=== PATIENT | male | born 1955 | race Caucasian/White ===

== ENCOUNTER 2017-01-19 08:18 | Day surgery (SDC) | payer OTHER ==
[2013-08-20 09:21] VITALS: BP 148/74
[~2017-01-19 08:18] MED LIST: KETAMINE HCL 200 MG/20 ML VIAL ONE; LACTATED RINGERS 1,000 ML IV.SOLN IV ONE; LIDOCAINE HCL/PF 2% 100 MG/5 ML VIAL IJ ONE; PROPOFOL 200 MG/20 ML VIAL IV ONE; SALINE FLUSH 10 ML DISP.SYRIN IVF ONE
--- NOTE | 2017-01-29 13:15 | GI Report ---
REFERRING PHYSICIAN: Dr. Monica Rutherford LEAD FURNACE OPERATOR: Johan Newman MD PROCEDURE MEDICATION: Propofol as per anesthesia. INDICATIONS: This 61-year-old man is referred for a screening. He is 6 feet 1 inch and weighs 388 pounds and carries that weight centrally. He does have significant sleep apnea. He denies changes in his stools or blood in the stool or a family history of colorectal cancer. PROCEDURE PERFORMED: Colonoscopy. PROCEDURE: An Olympus video colonoscope was advanced to the rectum. He does have moderate diverticular disease of the sigmoid and descending colon and a slightly atonic redundant colon, though we were able to reach the cecum. The appendiceal orifice and ileocecal valve looked normal. On slow withdrawal, the cecum and ascending colon showed no obvious intraluminal lesions noted until you got near the splenic flexure at 80 cm, the patient had a 3 mm flat polyp that was removed with a cold snare. The main part of the descending colon and sigmoid colon showed some redundancy and diverticular disease. Retroflexion of the rectum was normal. The patient tolerated the procedure well. FINDINGS: 1. One small polyp removed near the splenic flexure. 2. Moderate diverticular disease of the sigmoid and descending colon. RECOMMENDATIONS: 1. Increase fiber in the diet. 2. Metamucil or Benefiber would be beneficial. 3. With his sleep apnea and hip issues, weight loss would also be markedly beneficial. 4. Follow up with Dr. Rutherford. 5. Consider re-looking at his colon in 5 to 10 years pending the pathology of the polyp. cc: Dr. Monica GUTIERREZ
== END 2017-01-19 08:20 ==
LOC: OPSURG 08:18
PROVIDERS: ATTEND Internal Medicine Gastroenterology
DX: Z12.11 Encounter for screening for malignant neoplasm of colon (principal); D12.2 Benign neoplasm of ascending colon; K57.30 Diverticulosis of large intestine without perforation or abscess without bleeding; G47.33 Obstructive sleep apnea (adult) (pediatric)
CPT/HCPCS: 45385; 88305; J2001; J2704; J7120; S1016

== ENCOUNTER 2017-02-16 09:22 | Outpatient (CLI) | payer OTHER ==
[2013-08-20 09:21] VITALS: BP 148/74
[2017-02-16 10:06] LABS: eGFR (African) > 60; eGFR (Non-African) > 60
== END 2017-02-16 09:23 ==
LOC: LAB 09:22
PROVIDERS: ATTEND Family Medicine
DX: R60.0 Localized edema (principal)
CPT/HCPCS: 36415; 80048

== ENCOUNTER 2018-06-26 18:36 | Inpatient (IN) | payer OTHER ==
[2018-06-26 19:57] LABS: BASOPHILS % 0.3 (0.0-1.5); EOSINOPHILS % 0.3 % (0.0-6.8); MEAN CORPUSCULAR HEMOGLOBIN 30.8 pg (28.0-34.0); MEAN CORPUSCULAR VOLUME 88.8 fl (80.0-100.0); MONOCYTES % 4.4 % (0.0-11.0); NEUTROPHILS # 8.1 # k/uL (1.4-7.7)
--- NOTE | 2018-06-26 19:58 | ED Physician Documentation ---
General Adult - HPI Stated Complaint: "Increased urination, dizzy 3 days" Chief Complaint: General Adult Additional Information: 2 day history of swelling to the left lower extremity, associated with some erythema and warmth. Has had some SOB over the last several day. No chest pain noted. Has had a mild cough. Has been having some frequent urination, mouth has been dry. Patient has dx of DM in chart at office but states that he has not been told that he is diabetic or borderline diabetic. Patient has had cellulitis in the past. Has not had a previous blood clot. Patient came to the ED becasue he was getting dizzy and lightheaded some. Onset: days ago Timing: still present, worse Modifying Factors: none known - ROS CONST: fever. denies: chills EYES/ENT: denies: problems with vision CVS/RESP: shortness of breath (mild). denies: chest pain, cough GI/: none MS/SKIN/LYMPH: none NEURO/PSYCH: denies: headache, fainting, dizziness - PAST HX Past History: other (GERDs, LIZETTE, ) Other History: none Immunizations: referred to PCP Allergies/Adverse Reactions: Allergies Allergy/AdvReac Type Severity Reaction Status Date / Time Penicillins Allergy Verified 06/26/18 19:33 Home Medications: Ambulatory Orders Medication Instructions Recorded Aspirin [Osman] 162 mg PO QD 08/20/13 Naproxen Sodium [Aleve] 440 mg PO DAILY 08/20/13 - SOCIAL HX Smoking History: non-smoker Alcohol Use: rarely Drug Use: none - FAMILY HX Family History: Yes (DM, DVT) - VITAL SIGNS Vital Signs: Vital Signs Temp Pulse Resp BP Pulse Ox 98.6 F 100 H 20 164/88 95 06/26/18 18:40 06/26/18 18:40 06/26/18 18:40 06/26/18 18:40 06/26/18 18:40 - REVIEWED ASSESSMENTS Nursing Assessment Reviewed: Yes Vitals Reviewed: Yes Progress - Progress Progress: Patient was advised that his blood sugar is markedly elevated. I did not do a D dimer because patient will be place on anticoagulation therapy until venous doppler study can be done. Patient exceeds weight limit for CT scanner. ED Results Lab/Radiology - Orders Orders: ED Orders Category Date Time Status Place IV Lock 1T Care 06/26/18 18:53 Active CBC/PLATELET/DIFF Routine Lab 06/26/18 19:40 Received CMP Routine Lab 06/26/18 19:40 Received GLYCOHEMOGLOBIN A1C with eAG Routine Lab 06/26/18 19:40 Received URINALYSIS Routine Lab 06/26/18 Uncollected General Adult Physical Exam - PHYSICAL EXAM GENERAL APPEARANCE: mild distress EENT: eye inspection normal, ENT inspection normal, pharynx normal, dry mucous membranes NECK: normal inspection, thyroid normal, supple RESPIRATORY: no resp distress, chest non-tender, breath sounds normal. No: wheezes, rales, rhonchi CVS: reg rate & rhythm, heart sounds normal, equal pulses, no murmur, no gallop ABDOMEN: soft, no organomegaly, normal bowel sounds, no abdominal bruit, no distension, non-tender BACK: no CVA tenderness SKIN: other (swelling and erythema to the MARK, mild tender to touch, no cords palpated, Homans neg) EXTREMITIES: normal range of motion, no evidence of injury, edema, tenderness NEURO: oriented X3, CN's nml as tested, motor nml, sensation nml, mood/affect nml, cognition normal Discharge Clincal Impression: Cellulitis of left lower extremity, Hyperglycemia Condition: Stable Disposition: ADMITTED INPATIENT Decision to Admit: [id number] Date of Decison to Admit: 06/26/18 Decision Time: 20:34
[2018-06-26 20:10] LABS: eGFR (Non-African) > 60
[2018-06-26] MEDS ORDERED: PNEUMOCOCCAL 23-VAL IM ONE (21:26)
[2018-06-26] MEDS ORDERED: LEVOFLOXACIN 500MG/D5W 100ML 100 ML IV ONE (21:26)
[2018-06-26] MEDS ORDERED: LEVOFLOXACIN 250MG/D5W 50ML 50 ML IV ONE (21:26)
[2018-06-26] MEDS ORDERED: INSULIN REGULAR, HUMAN 100 UNIT/ML 3ML VIAL ONE (21:38)
[2018-06-26] MEDS: 0.9 % SODIUM CHLORIDE 1,000 ML IV SCH (21:41)
[2018-06-26] MEDS ORDERED: LEVOFLOXACIN 500MG/D5W 100ML 500 MG in PREMIX BAG 1 BAG IV ONE (21:42)
[2018-06-26 23:12] VITALS: BMI 43.1
[2018-06-26] MEDS ORDERED: INSULIN REGULAR, HUMAN 100 UNIT/ML 3ML VIAL SQ ONE (23:48)
[2018-06-27] MEDS ORDERED: LEVOFLOXACIN 500MG/D5W 100ML 100 ML IV ONE (03:45)
[2018-06-27] MEDS: PANTOPRAZOLE SODIUM 40 MG TABLET PO SCH (06:39)
[2018-06-27 07:41] LABS: BASOPHILS % 0.2 (0.0-1.5); EOSINOPHILS % 0.3 % (0.0-6.8); MEAN CORPUSCULAR VOLUME 88.5 fl (80.0-100.0); MONOCYTES % 4.7 % (0.0-11.0)
[2018-06-27 07:50] LABS: OCCULT BLOOD,URINE 2+ (NEGATIVE); UROBILINOGEN URINE 0.2 Eu (0.2-1.0)
[2018-06-27 08:00] LABS: eGFR (Non-African) > 60
[2018-06-27] MEDS: 0.9 % SODIUM CHLORIDE 1,000 ML IV SCH ×2 (08:49→17:27)
[2018-06-27] MEDS: APIXABAN 2.5 MG TABLET PO SCH ×2 (08:50→21:21)
[2018-06-27] MEDS ORDERED: LEVOFLOXACIN 250MG/D5W 50ML 50 ML IV ONE (08:51)
[2018-06-27] MEDS: HYDROCHLOROTHIAZIDE 25 MG TABLET PO SCH (08:51)
[2018-06-27] MEDS: INSULIN LISPRO 100 UNIT/ML 3ML VIAL SQ SCH ×4 (08:53→21:22)
[2018-06-27] MEDS ORDERED: LEVOFLOXACIN 500MG/D5W 100ML 500 MG in PREMIX BAG 1 BAG IV SCH (09:00)
[2018-06-27] MEDS ORDERED: LEVOFLOXACIN 250MG/D5W 50ML 250 MG in PREMIX BAG 1 BAG IV SCH (09:00)
--- NOTE | 2018-06-27 10:21 | History and Physical Report ---
History of Present Illnes - History of Present Illness Reason for Visit: Cellulitis left lower extremity, blood sugar of 587 History of Present Illness: 63 year old male presented to the ER overnight for swelling and redness in his left lower extremity and for generally feeling poorly. He [place] He states about 30 minutes later he stated feeling really shaky and dizzy. He states he had similar symptoms on Thursday of last week but notes they passed sooner than they did last night. When he arrived he was found to have a blood sugar of 587. He denies any history of diabetes and does not take any blood sugar lowering medications. Upon review of his clinic chart it was noted by his primary that he did have diabetes. His labs were otherwise stable suggesting that he was not in DKA. He has been started on sliding scale insulin and blood sugars this morning were 299 (fasting) and 324 after breakfast. Patient states he is feeling a lot better and does not have any shaking, confusion, or dizziness this morning. He also notes redness and swelling to his left lower extremity which he states started evening and has gotten considerably worse since then. He states the area of redness is extremely tender to touch and is painful to walk on. He denies any known fever but notes he has had chills a few times since when his symptoms started. He notes a history of cellulitis of his right lower extremity and notes he was hospitalized for cellulitis 2-3 years ago. He also notes a family history of blood clots noting that his brother has a history of DVT. He was given the choice by the ER provider of going to [facility] for imaging to rule out DVT or be started on anticoagulation until US is available at this facility next week. He has elected to stay here and be started on anticoagulation as a precaution. His WBC count was in normal range but did show an early left shift suggesting cellulitis. The patient was started on IV Levaquin in the ER and has had a second dose this morning. He states his cellulitis is largely unchanged this morning. He states he would like to try an ice pack to his lower leg to help with the swelling and pain. He denies any history of CHF but notes he does take a water pill for "chronic water retention". He denies any shortness of breath, fever, nausea, vomiting, diarrhea, or other concerns at time of interview. - Past Medical History Cardiac: Other ("fluid retention"). denies: HTN Pulmonary: denies: Asthma, COPD Gastrointestinal: GERD - Past Surgical History Past Surgical History: Cataract Removal, Total Hip Replacement (right), Other (Left ankle fracture) - Past Social History Smoke: No Alcohol: Rare Drugs: None Lives: With Family - Health Maintenance Health Maintenance: denies: Influenza Vaccine, Pneumococcal Vaccine Influenza Vaccine: No Pneumonia Vaccine: No Resuscitation Status: Resusciation Status Resuscitation Status Full Code Review of Systems - Review of Systems Constitutional: negative: Fever, Chills Eyes: negative: vision change, redness ENT: negative: Ear Pain, Nose Pain, Nose Congestion, Throat Pain Respiratory: negative: Cough, Shortness of Breath, Wheezing Cardiovascular: negative: Chest Pain, Light Headedness Gastrointestinal: negative: Nausea, Vomiting, Abdominal Pain, Diarrhea, Constipation Genitourinary: negative: Dysuria, Incontinence Musculoskeletal: Leg Pain (left lower extremity pain and swelling ) Skin: Other (Redness and swelling to the left lower extremity) Neurological: negative: Weakness, Numbness, Change in Speech, Confusion - Medications/Allergies Allergies/Adverse Reactions: Allergies Allergy/AdvReac Type Severity Reaction Status Date / Time Penicillins Allergy Verified 06/26/18 19:33 Current Inpatient Medications: Current Inpatient Medications Hydrochlorothiazide (Hydrodiuril) 12.5 mg PO DAILY [facility] Last Admin: 06/27/18 08:51 Dose: 12.5 mg Sodium Chloride (Normal Saline) 1,000 mls @ 100 mls/hr IV Q10H [facility] Last Admin: 06/27/18 08:49 Dose: 100 mls/hr LEVOFLOXACIN 500MG/D5W 100ML (500 mg/ PREMIX BAG) 100 mls @ 100 mls/hr IV DAILY [facility]I Stop: 07/11/18 08:59 LEVOFLOXACIN 500MG/D5W 100ML (500 mg/ PREMIX BAG) 100 mls @ 100 mls/hr IV NOW ONE Stop: 06/26/18 22:41 Last Admin: 06/26/18 22:38 Dose: 100 mls/hr LEVOFLOXACIN 250MG/D5W 50ML (250 mg/ PREMIX BAG) 50 mls @ 50 mls/hr IV DAILY MAXI Stop: 07/11/18 08:59 Last Admin: 06/27/18 09:23 Dose: 50 mls/hr Insulin Human Lispro (Humalog) 0 - 12 unit SQ [facility]; Protocol Last Admin: 06/27/18 08:53 Dose: 8 units Insulin Human Regular (Humulin R) 5 unit SQ NOW ONE Stop: 06/26/18 23:49 Last Admin: 06/26/18 23:55 Dose: 5 units Miscellaneous (Chem Sticks) 1 each [facility] Last Admin: 06/27/18 08:49 Dose: 1 each Pantoprazole Sodium (Protonix) 40 mg PO 0700 [facility] Last Admin: 06/27/18 06:39 Dose: 40 mg Pneumococcal Polyvalent Vaccine (Pneumovax 23) 25 mcg IM 1T ONE Stop: 06/26/18 21:27 Tamsulosin HCl (Flomax) 0.4 mg PO [facility] Exam - Exam Vital Signs: Vital Signs (72 hours) 06/26/18 06/26/18 06/26/18 18:40 21:57 22:00 Temperature 98.6 F 97.5 F L 98.3 F Pulse Rate [ 100 H 88 115 H Right Pulse ox] Respiratory 20 16 20 Rate Blood Pressure 164/88 134/88 151/88 [Right Arm] O2 Sat by Pulse 95 98 96 Oximetry 06/26/18 06/27/18 06/27/18 22:20 02:00 06:00 Temperature 98.3 F 98.6 F 98.6 F Pulse Rate [ 115 H 88 88 Right Pulse ox] Respiratory 20 24 24 Rate Blood Pressure 151/88 144/63 144/63 [Right Arm] O2 Sat by Pulse 96 95 95 Oximetry 06/27/18 08:16 Temperature Pulse Rate [ 77 Right Pulse ox] Respiratory 22 Rate Blood Pressure [Right Arm] O2 Sat by Pulse Oximetry General: Alert, Oriented to Person, Oriented to Place, Oriented to Time, Cooperative, No acute distress, Morbidly Obese HEENT: Atraumatic, EOMI, Mouth Mucous membr. moist/[place], Dentition Normal. No: Pharyngeal Erythema, Tonsillar Exudate Neck: Normal Range of Motion Lungs: Clear to auscultation, Normal air movement, Speaks full Sentences. No: Respiratory Distress Cardiovascular: Regular rate, Normal S1, Normal S2, No murmurs Abdomen: Normal bowel sounds, Soft, No tenderness Integumentary: Erythema (Swelling and warmth to left lower extremity at and just above the ankle. Majority of the swelling to the left medial ankle. Entire area is tender with medial aspect of the lower extremity being most tender. Sensation intact. Dorsalis pedis pulses present and symmetric. Cap refill less than 2 seconds. ) Extremities: Other (Hyperpigmentation of bilateral lower extremities to mid gill - consistent with chronic venous stasis.) Neurological: Normal gait, Normal speech, Strength Equal Bilat, Sensation intact Psych/Mental Status: Mental status NL, Mood NL, Appropriate Affect, Intact Judgment - Laboratory Results Laboratory Results: Laboratory Results 06/26/18 06/26/18 06/26/18 18:50 19:40 19:40 WBC 9.60 RBC 4.34 Hgb 13.4 Hct 38.5 MCV 88.8 MCH 30.8 MCHC 34.7 RDW 13.4 Plt Count 208 Neut % (Auto) 84.5 H Lymph % (Auto) 9.[address] [place] % (Auto) 4.4 Eos % (Auto) 0.3 Baso % (Auto) 0.3 Neut # (Auto) 8.1 H Lymph # (Auto) 0.9 [place] # (Auto) 0.4 Eos # (Auto) 0.0 Baso # (Auto) 0.0 Reactive Lymphs % 1.1 Reactive Lymphs # 0.1 Sodium 128 L Potassium 4.3 Chloride 95 L Carbon Dioxide 21 L BUN 16 Creatinine 1.00 Estimated Creat Clear 178 Est GFR ( Amer) > 60 Est GFR (Non-Af Amer) > 60 Glucose 587 H Calcium 8.7 Total Bilirubin 0.7 AST 43 ALT 58 Alkaline Phosphatase 140 H Total Protein 7.9 Albumin 4.1 Urine Color TNP Urine Appearance TNP Urine pH 5.0 Ur Specific [place] 1.015 Urine Protein 1+ H Urine Ketones Negative Urine Occult Blood 2+ H Urine Nitrite Negative Urine Bilirubin Negative Urine Urobilinogen 0.2 Ur Leukocyte Esterase Negative Urine Glucose 2+ H 06/27/18 06/27/18 06:00 07:15 WBC 9.80 RBC 4.32 Hgb 12.9 Hct 38.2 MCV 88.5 MCH 30.0 MCHC 33.9 RDW 13.3 Plt Count 196 Neut % (Auto) 81.0 H Lymph % (Auto) 11.[address] [place] % (Auto) 4.7 Eos % (Auto) 0.3 Baso % (Auto) 0.2 Neut # (Auto) 8.0 H Lymph # (Auto) 1.2 [place] # (Auto) 0.5 Eos # (Auto) 0.0 Baso # (Auto) 0.0 Reactive Lymphs % 2.1 Reactive Lymphs # 0.2 Sodium 133 L Potassium 3.4 L Chloride 100 Carbon Dioxide 23 BUN 14 Creatinine 0.90 Estimated Creat Clear 180 Est GFR ( Amer) > 60 Est GFR (Non-Af Amer) > 60 Glucose 299 H Calcium 8.5 Total Bilirubin 1.2 AST 28 ALT 48 Alkaline Phosphatase 108 Total Protein 7.8 Albumin 3.9 Urine Color Urine Appearance Urine pH Ur Specific [place] Urine Protein Urine Ketones Urine Occult Blood Urine Nitrite Urine Bilirubin Urine Urobilinogen Ur Leukocyte Esterase Urine Glucose Assessment/Plan - Assessment/Plan (1) Cellulitis of left lower extremity Status: Acute Current Visit: Yes Assessment: Left lower extremity swelling, erythema, and warmth. Normal WBC count with signs of an early left shift. Area of erythema outlined. Patient is receiving IV levaquin for symptoms. Cannot rule out DVT. US to be done Thursday to rule out other possible diagnosis. Plan: Continue IV Levaquin. Monitor symptoms. Ice pack to left lower extremity for comfort. (2) DM (diabetes mellitus), type 2, uncontrolled Status: Acute Current Visit: Yes Assessment: Patient's initial blood sugar was 587. He was started on sliding scale insulin. Fasting Blood sugar this morning was 299 and finger stick after breakfast was 324. Per patient this is a new diagnosis. Plan: Continue monitoring Blood sugar 5 times daily and sliding scale insulin. As this is a new diagnosis, consider dietary consult on Thursday for dietary education. VTE Assessment - RISK FACTOR SCORE VTE RISK FACTOR SCORES: AGE OVER 60 YEARS, ACUTE INFECTION OTHER THEN SEPSIS, OBESITY, LEG SWELLING, ULCERS, VARICOSE VEINS - RISK VTE HIGH RISK: SCORE OF 3-4 (RISK PROXIMAL DVT 4-8%) PROPHYLAXIS NEEDED (Patient is on Eliquis.)
[2018-06-27] MEDS: ACETAMINOPHEN 325 MG TABLET PO PRN (19:37)
[2018-06-27] MEDS ORDERED: INSULIN DETEMIR 100 UNIT/ML 3ML PEN.INJCTR SQ SCH (21:00)
[2018-06-27] MEDS: TAMSULOSIN HCL 0.4 MG CAP.ER.24H PO SCH (21:22)
[2018-06-27] MEDS ORDERED: PATIENT OWN MED 1 EACH EACH SQ SCH (22:00)
[2018-06-28] MEDS: 0.9 % SODIUM CHLORIDE 1,000 ML IV SCH ×2 (00:41→14:36)
[2018-06-28] MEDS: ACETAMINOPHEN 325 MG TABLET PO PRN (02:04)
[2018-06-28] MEDS: PANTOPRAZOLE SODIUM 40 MG TABLET PO SCH (06:09)
[2018-06-28 07:34] LABS: PH BG VENOUS 7.51 (7.32-7.43)
[2018-06-28] MEDS: INSULIN LISPRO 100 UNIT/ML 3ML VIAL SQ SCH ×4 (07:42→20:32)
[2018-06-28] MEDS ORDERED: LACTOBACILLUS ACIDOPHILUS CAPS PO SCH (08:00)
[2018-06-28] MEDS ORDERED: CLINDAMYCIN PHOSPHATE 900 MG in 0.9 % SODIUM CHLORIDE 50 ML IV SCH (08:00)
--- NOTE | 2018-06-28 08:05 | Inpatient Progress Note ---
Subjective - Required Recertification Statement I anticipate X number of days because-include discharge plan: 4 - Review of Systems Subjective: Patient feels better but still having pain in L foot. BS down in 200 range now. Met with resident services supervisor yesterday. 101 fever last night. Objective - Exam Vitals and I&O: Vital Signs Temp 100.1 F H 06/28/18 05:35 Pulse 72 06/28/18 05:35 Resp 18 06/28/18 05:35 BP 148/71 06/28/18 05:35 Pulse Ox 95 06/28/18 05:35 Intake & Output 06/27/18 06/27/18 06/28/18 11:59 23:59 11:59 Intake Total 390 2650 360 Balance 390 2650 360 Weight 148.325 kg Intake: IV 150 950 Right Wrist 150 950 Oral 240 1700 360 Other: Voiding Method Toilet Toilet # Voids 2 General: Alert, Oriented to Person, Oriented to Place, Oriented to Time, Cooperative, No acute distress Lungs: Clear to auscultation, Normal air movement, Speaks full Sentences Cardiovascular: Regular rate Extremities: Other (L lower leg wtih swelling and erythema. No change in erythema. Prominent swelling and tenderness over medial malleolus. ) - Results Results: Laboratory Results WBC 9.80 K/ul (4.00-12.00) 06/27/18 07:15 RBC 4.32 M/ul (3.90-5.20) 06/27/18 07:15 Hgb 12.9 g/dL (12.0-18.0) 06/27/18 07:15 Hct 38.2 % (37.0-53.0) 06/27/18 07:15 MCV 88.5 fl (80.0-100.0) 06/27/18 07:15 MCH 30.0 pg (28.0-34.0) 06/27/18 07:15 MCHC 33.9 g/dL (30.0-36.0) 06/27/18 07:15 RDW 13.3 % (11.3-14.3) 06/27/18 07:15 Plt Count 196 K/mm3 (130-400) 06/27/18 07:15 Neut % (Auto) 81.0 % (39.0-79.0) H 06/27/18 07:15 Lymph % (Auto) 11.8 % (16.0-50.0) L 06/27/18 07:15 [place] % (Auto) 4.7 % (0.0-11.0) 06/27/18 07:15 Eos % (Auto) 0.3 % (0.0-6.8) 06/27/18 07:15 Baso % (Auto) 0.2 (0.0-1.5) 06/27/18 07:15 Neut # (Auto) 8.0 # k/uL (1.4-7.7) H 06/27/18 07:15 Lymph # (Auto) 1.2 # k/uL (0.6-4.0) 06/27/18 07:15 [place] # (Auto) 0.5 # k/uL (0.0-0.9) 06/27/18 07:15 Eos # (Auto) 0.0 # k/uL (0.0-0.6) 06/27/18 07:15 Baso # (Auto) 0.0 # k/uL (0.0-0.5) 06/27/18 07:15 Reactive Lymphs % 2.1 % (0.0-5.0) 06/27/18 07:15 Reactive Lymphs # 0.2 # k/uL (0.0-0.8) 06/27/18 07:15 VBG pH 7.51 (7.32-7.43) H 06/26/18 20:30 VBG pCO2 at Pat Temp 29 mmHG (40-60) L 06/26/18 20:30 VBG pO2 at Pat Temp 118 mmHg (30-55) H 06/26/18 20:30 VBG HCO3 26 mmol/L (22-27) 06/26/18 20:30 VBG O2 Sat (Calc) 99 % (40-85) H 06/26/18 20:30 VBG Base Excess 1 mmol/L (-2- +2) 06/26/18 20:30 Sodium 133 mmol/L (136-145) L 06/27/18 06:00 Potassium 3.4 mmol/L (3.5-5.1) L 06/27/18 06:00 Chloride 100 mmol/L (98-107) 06/27/18 06:00 Carbon Dioxide 23 mmol/L (22-30) 06/27/18 06:00 BUN 14 mg/dL (9-20) 06/27/18 06:00 Creatinine 0.90 mg/dL (0.66-1.25) 06/27/18 06:00 Estimated Creat Clear 180 06/27/18 06:00 Est GFR ( Amer) > 60 (60-) 06/27/18 06:00 Est GFR (Non-Af Amer) > 60 (60-) 06/27/18 06:00 Glucose 299 mg/dL (74-106) H 06/27/18 06:00 Estimat Average Glucose 269 mg/dL 06/26/18 19:40 Hemoglobin A1c 11.0 % (4.0-5.6) H 06/26/18 19:40 Calcium 8.5 mg/dL (8.4-10.2) 06/27/18 06:00 Total Bilirubin 1.2 mg/dL (0.2-1.3) 06/27/18 06:00 AST 28 U/L (15-46) 06/27/18 06:00 ALT 48 U/L (13-69) 06/27/18 06:00 Alkaline Phosphatase 108 U/L (38-126) 06/27/18 06:00 Total Protein 7.8 g/dL (6.3-8.2) 06/27/18 06:00 Albumin 3.9 g/dL (3.5-5.0) 06/27/18 06:00 Urine Color TNP 06/26/18 18:50 Urine Appearance TNP 06/26/18 18:50 Urine pH 5.0 (5.0 - 8.0) 06/26/18 18:50 Ur Specific [place] 1.015 (1.010-1.030) 06/26/18 18:50 Urine Protein 1+ mg/dL (NEGATIVE) H 06/26/18 18:50 Urine Ketones Negative mg/dL (NEGATIVE) 06/26/18 18:50 Urine Occult Blood 2+ (NEGATIVE) H 06/26/18 18:50 Urine Nitrite Negative (NEGATIVE) 06/26/18 18:50 Urine Bilirubin Negative (NEGATIVE) 06/26/18 18:50 Urine Urobilinogen 0.2 Eu (0.2-1.0) 06/26/18 18:50 Ur Leukocyte Esterase Negative (NEGATIVE) 06/26/18 18:50 Urine Glucose 2+ mg/dL (NEGATIVE) H 06/26/18 18:50 Assessment/Plan - Assessment/Plan (1) Cellulitis of left lower extremity Status: Acute Current Visit: Yes Comment: See above Plan: Plan podiatry consult today. Plan xray and CT of ankle. Change to clindamycin. (2) DM (diabetes mellitus), type 2, uncontrolled Status: Acute Current Visit: Yes Qualifiers: Diabetes mellitus assisted insulin use: without assisted use Diabetes mellitus complication status: without complication Qualified Code(s): E11.65 - Type 2 diabetes mellitus with hyperglycemia Plan: STart metformin today. Basal insulin started last night. Continue SSI. Will have to hold metformin 48 hours due to getting contrast.
[2018-06-28] MEDS ORDERED: CLINDAMYCIN PHOSPHATE 300 MG/2 ML VIAL ONE ×2 (08:37→16:43)
[2018-06-28] MEDS: APIXABAN 2.5 MG TABLET PO SCH ×2 (08:47→20:27)
[2018-06-28] MEDS: HYDROCHLOROTHIAZIDE 25 MG TABLET PO SCH (08:48)
[2018-06-28 09:37] LABS: BASOPHILS % 0.2 (0.0-1.5); EOSINOPHILS % 0.8 % (0.0-6.8); MEAN CORPUSCULAR VOLUME 88.6 fl (80.0-100.0); MONOCYTES % 4.7 % (0.0-11.0); NEUTROPHILS # 10.3 # k/uL (1.4-7.7)
[2018-06-28] MEDS ORDERED: CLINDAMYCIN PHOSPHATE 900 MG in 0.9 % SODIUM CHLORIDE 100 ML IV SCH ×5 (10:47→21:00)
[2018-06-28 11:05] LABS: eGFR (Non-African) > 60
--- NOTE | 2018-06-28 11:16 | Inpatient Progress Note ---
Subjective - Required Recertification Statement I anticipate X number of days because-include discharge plan: 7 - Review of Systems Events since last encounter: Patient seen as a podiatry consult from Dr. Rutherford, for a red, swollen, hot left lower leg. Patient states he has had this since about , worst it has ever been. Admits history of cellulitis and swelling but resolved previously after a couple days in the hospital with IV antibiotics in the past. He was not feeling well and therefore came to the ER to be checked out. Was found with Severe hyperglycemia, and labs demonstrated A1C of 11.0%. Patient has seen a director of global sales now in the hospital and realizes the lifestyle changes that will need to happen beginning immediately. Patient denies any improvement in redness since coming into the hospital, but states it seems a little less hot now since admission. Admits some fevers over night, having difficulty bringing down even on Tylenol. Patient was instructed previously on need for Venous doppler to check for DVT. Wanted to wait till Thursday and have it done here. He is willing to go to [place] if we deem it necessary. Patient denies any open wounds, denies any dental problems or other source of infection. Denies any chills, nausea, vomiting, shortness of breath, chest pain, painful urination or BM or blood in either today. General: Malaise, Other (Fevers last night) Objective - Exam Vitals and I&O: Vital Signs Temp 98 F 06/28/18 10:00 Pulse 73 06/28/18 10:00 Resp 20 06/28/18 10:00 BP 150/63 06/28/18 10:00 Pulse Ox 95 06/28/18 10:00 Intake & Output 06/27/18 06/27/18 06/28/18 11:59 23:59 11:59 Intake Total 390 2650 360 Balance 390 2650 360 Weight 148.325 kg Intake: IV 150 950 Right Wrist 150 950 Oral 240 1700 360 Other: Voiding Method Toilet Toilet Toilet # Voids 2 General: Alert, Oriented to Person, Oriented to Place, Oriented to Time, Obese HEENT: Atraumatic Neck: No: No JVD, No thyromegaly Lungs: Speaks full Sentences. No: Respiratory Distress Extremities: Other (Severe edema noted left lower leg. POP noted to left lower leg, even with light palpation, especially at medial malleolus area. 2+ DP/PT pulses b/l feet. No fluctuance noted, very firm skin to touch left lower leg. Right lower leg normal temperature. No open lesiosn anywhere b/l.) Skin: Erythema (Erythema encompmassing the left lower leg circumferentially, still filling the area marked by a pen previously by someone. Severe erythema, severe warmth to the touch, extending proximal and distal from the red site. Foot with edema and warmth noted, but absent swelling. Medial malleolus area seems to be focus of worst swelling and warmth and erythema. Small two areas of necrotic change perhaps due to focus of underlying infection or excessive swelling causing skin necrosis there. No open lesions noted b/l feet. Small white petechiae noted left lower leg in a couple small places. ) - Results Results: Laboratory Results WBC 9.80 K/ul (4.00-12.00) 06/27/18 07:15 RBC 4.32 M/ul (3.90-5.20) 06/27/18 07:15 Hgb 12.9 g/dL (12.0-18.0) 06/27/18 07:15 Hct 38.2 % (37.0-53.0) 06/27/18 07:15 MCV 88.5 fl (80.0-100.0) 06/27/18 07:15 MCH 30.0 pg (28.0-34.0) 06/27/18 07:15 MCHC 33.9 g/dL (30.0-36.0) 06/27/18 07:15 RDW 13.3 % (11.3-14.3) 06/27/18 07:15 Plt Count 196 K/mm3 (130-400) 06/27/18 07:15 Neut % (Auto) 81.0 % (39.0-79.0) H 06/27/18 07:15 Lymph % (Auto) 11.8 % (16.0-50.0) L 06/27/18 07:15 [place] % (Auto) 4.7 % (0.0-11.0) 06/27/18 07:15 Eos % (Auto) 0.3 % (0.0-6.8) 06/27/18 07:15 Baso % (Auto) 0.2 (0.0-1.5) 06/27/18 07:15 Neut # (Auto) 8.0 # k/uL (1.4-7.7) H 06/27/18 07:15 Lymph # (Auto) 1.2 # k/uL (0.6-4.0) 06/27/18 07:15 [place]lin # (Auto) 0.5 # k/uL (0.0-0.9) 06/27/18 07:15 Eos # (Auto) 0.0 # k/uL (0.0-0.6) 06/27/18 07:15 Baso # (Auto) 0.0 # k/uL (0.0-0.5) 06/27/18 07:15 Reactive Lymphs % 2.1 % (0.0-5.0) 06/27/18 07:15 Reactive Lymphs # 0.2 # k/uL (0.0-0.8) 06/27/18 07:15 VBG pH 7.51 (7.32-7.43) H 06/26/18 20:30 VBG pCO2 at Pat Temp 29 mmHG (40-60) L 06/26/18 20:30 VBG pO2 at Pat Temp 118 mmHg (30-55) H 06/26/18 20:30 VBG HCO3 26 mmol/L (22-27) 06/26/18 20:30 VBG O2 Sat (Calc) 99 % (40-85) H 06/26/18 20:30 VBG Base Excess 1 mmol/L (-2- +2) 06/26/18 20:30 Sodium 129 mmol/L (136-145) L 06/28/18 09:20 Potassium 3.4 mmol/L (3.5-5.1) L 06/28/18 09:20 Chloride 100 mmol/L (98-107) 06/28/18 09:20 Carbon Dioxide 21 mmol/L (22-30) L 06/28/18 09:20 BUN 14 mg/dL (9-20) 06/28/18 09:20 Creatinine 0.80 mg/dL (0.66-1.25) 06/28/18 09:20 Estimated Creat Clear 203 06/28/18 09:20 Est GFR ( Amer) > 60 (60-) 06/28/18 09:20 Est GFR (Non-Af Amer) > 60 (60-) 06/28/18 09:20 Glucose 282 mg/dL (74-106) H 06/28/18 09:20 Estimat Average Glucose 269 mg/dL 06/26/18 19:40 Hemoglobin A1c 11.0 % (4.0-5.6) H 06/26/18 19:40 Calcium 8.2 mg/dL (8.4-10.2) L 06/28/18 09:20 Total Bilirubin 1.2 mg/dL (0.2-1.3) 06/27/18 06:00 AST 28 U/L (15-46) 06/27/18 06:00 ALT 48 U/L (13-69) 06/27/18 06:00 Alkaline Phosphatase 108 U/L (38-126) 06/27/18 06:00 Total Protein 7.8 g/dL (6.3-8.2) 06/27/18 06:00 Albumin 3.9 g/dL (3.5-5.0) 06/27/18 06:00 Urine Color TNP 06/26/18 18:50 Urine Appearance TNP 06/26/18 18:50 Urine pH 5.0 (5.0 - 8.0) 06/26/18 18:50 Ur Specific [place] 1.015 (1.010-1.030) 06/26/18 18:50 Urine Protein 1+ mg/dL (NEGATIVE) H 06/26/18 18:50 Urine Ketones Negative mg/dL (NEGATIVE) 06/26/18 18:50 Urine Occult Blood 2+ (NEGATIVE) H 06/26/18 18:50 Urine Nitrite Negative (NEGATIVE) 06/26/18 18:50 Urine Bilirubin Negative (NEGATIVE) 06/26/18 18:50 Urine Urobilinogen 0.2 Eu (0.2-1.0) 06/26/18 18:50 Ur Leukocyte Esterase Negative (NEGATIVE) 06/26/18 18:50 Urine Glucose 2+ mg/dL (NEGATIVE) H 06/26/18 18:50 Assessment/Plan - Assessment/Plan (1) Abscess or cellulitis of ankle Status: Acute Current Visit: Yes Comment: Patient was switched just barely to IV Clindamycin from IV Levofloxacin as there was no improvement. Recommend Vancomycin and Zosyn as diabetic with what appears to possibly be a significant soft tissue infection, with no evidence of open lesion. STAT xray ordered left ankle to evaluate for any ST emphysema. Pending results, patient will require rashawn I&D if ST emphysema visualized, or patient will be recommended transfer to [place] for further evaluation with MRI and Venous US to rule out DVT as well, and obtain treatment there. No open lesions, so no wound treatment necessary currently. Patient ok with transfer if we deem necessary. (2) Cellulitis of left lower extremity Status: Acute Current Visit: Yes Comment: See above (3) DM (diabetes mellitus), type 2, uncontrolled Status: Acute Current Visit: Yes (4) Hyperglycemia Status: Acute Current Visit: Yes Comment: Patient being managed by Dr. Rutherford. Patient understands a need for immediate change in lifestyle, diet, etc. He has met with a director of global sales here so far.
--- NOTE | 2018-06-28 12:05 | Diagnostic Imaging Report ---
KAYLEE RODRIGUEZ [facility] [address] [facility].[address] [address] Report Submission Date: Jun 28, 2018 11:44:05 AM CDT Patient Study Name: CANDY CALLOWAY Date: Jun 28, 2018 11:10:11 AM CDT Modality Type: DX Gender: M Description: LOWER EXTREMITY : 59 Institution: [facility] Physician: KAYLEE RODRIGUEZ Examination: Plain film left ankle History: REDNESS, SWELLING, PAIN X 4 DAYS (Hx) Findings: 3 views of the left ankle demonstrates osteopenia. Articular degenerative spurring. No fracture or dislocation. Talar dome is intact. Calcaneal spurs. Generalized soft tissue fullness. No joint effusion. Impression: Osteopenia and degenerative changes. No acute appearing osseous abnormality. Significant generalized ankle region soft tissue fullness. Electronically signed on Jun 28, 2018 11:44:05 AM CDT by: Nick GUTIERREZ
[2018-06-28] MEDS ORDERED: 0.9 % SODIUM CHLORIDE 250 ML IV.SOLN IV SCH (13:00)
--- NOTE | 2018-06-28 15:00 | Diagnostic Imaging Report ---
KAYLEE RODRIGUEZ [facility] [address] [facility] [address] [address] Report Submission Date: Jun 28, 2018 2:40:26 PM CDT Patient Study Name: CANDY CALLOWAY Date: Jun 28, 2018 1:26:52 PM CDT Modality Type: CT\SR Gender: M Description: CT LEG W/ CONTRAST : 59 Institution: [facility] Physician: KAYLEE RODRIGUEZ Examination: CT left lower extremity. History: PAIN; SWELLING; REDNESS (Hx) Comparison exams: Plain film dated 28 June 2018 Technique: Axial imaging with sagittal coronal reconstruction postcontrast. Findings: Significant lower extremity soft tissue edema. No evidence for air within the soft tissue. No evidence for radiopaque foreign body. No abnormal enhancing structures. No formed fluid collection identified. Visualized osseous cortical margins appear to be intact. Scattered articular degenerative changes. No periosteal elevation or irregularity. Vascular atherosclerotic disease. Deep muscle groups/fascial planes without evidence for fluid/abnormality Impression: Significant soft tissue edema/fluid. No formed fluid collection or abnormally enhancing structure. Correlate with any underlying medical condition as to etiology. No evidence for deep fascial/osseous irregularity. Electronically signed on Jun 28, 2018 2:40:26 PM CDT by: Nick GUTIERREZ
[2018-06-28] MEDS: CLINDAMYCIN PHOSPHATE 900 MG in 0.9 % SODIUM CHLORIDE 100 ML IV SCH ×2 (16:59→20:34)
[2018-06-28] MEDS ORDERED: HYDROcodone /APAP 5/325 1 EACH TABLET PO PRN ×3 (17:18→17:41)
[2018-06-28] MEDS ORDERED: metroNIDAZOLE/SODIUM CHLORIDE 500 MG in PREMIX BAG 1 BAG IV SCH (17:30)
[2018-06-28] MEDS ORDERED: HYDROcodone /APAP 5/325 1 EACH TABLET ONE (17:31)
[2018-06-28] MEDS ORDERED: metroNIDAZOLE/SODIUM CHLORIDE 100 ML IV ONE (18:07)
[2018-06-28 18:33] VITALS: BP 156/67
[2018-06-28] MEDS: TAMSULOSIN HCL 0.4 MG CAP.ER.24H PO SCH (20:27)
[2018-06-28] MEDS ORDERED: INSULIN GLARGINE,HUM.REC.ANLOG 100 UNIT/ML PEN.INJCTR SQ SCH ×2 (21:00)
--- NOTE | 2018-07-19 13:56 | Discharge Summary ---
Discharge Summary - Discharge Sumary History of Present Illness: 63 year old male presented to the ER overnight for swelling and redness in his left lower extremity and for generally feeling poorly. [place]. He states about 30 minutes later he stated feeling really shaky and dizzy. He states he had similar symptoms on Thursday of last week but notes they passed sooner than they did last night. When he arrived he was found to have a blood sugar of 587. He denies any history of diabetes and does not take any blood sugar lowering medications. Upon review of his clinic chart it was noted by his primary that he did have diabetes. His labs were otherwise stable suggesting that he was not in DKA. He has been started on sliding scale insulin and blood sugars this morning were 299 (fasting) and 324 after breakfast. Patient states he is feeling a lot better and does not have any shaking, confusion, or dizziness this morning. He also notes redness and swelling to his left lower extremity which he states started evening and has gotten considerably worse since then. He states the area of redness is extremely tender to touch and is painful to walk on. He denies any known fever but notes he has had chills a few times since when his symptoms started. He notes a history of cellulitis of his right lower extremity and notes he was hospitalized for cellulitis 2-3 years ago. He also notes a family history of blood clots noting that his brother has a history of DVT. He was given the choice by the ER provider of going to [place] for imaging to rule out DVT or be started on anticoagulation until US is available at this facility next week. He has elected to stay here and be started on anticoagulation as a precaution. His WBC count was in normal range but did show an early left shift suggesting cellulitis. The patient was started on IV Levaquin in the ER and has had a second dose this morning. He states his cellulitis is largely unchanged this morning. He states he would like to try an ice pack to his lower leg to help with the swelling and pain. He denies any history of CHF but notes he does take a water pill for "chronic water retention". He denies any shortness of breath, fever, nausea, vomiting, diarrhea, or other concerns at time of interview. Condition at Discharge: Stable Home Medications: Ambulatory Orders Medication Instructions Recorded Aspirin [Osman] 162 mg PO QD 08/20/13 Naproxen Sodium [Aleve] 440 mg PO DAILY 08/20/13 Consultations this Visit: None Procedures this Visit: None Allergies/Adverse Reactions: Allergies Allergy/AdvReac Type Severity Reaction Status Date / Time Penicillins Allergy Verified 06/26/18 19:33 Discharge Summary: Patient was admitted with cellulitis of the L leg and new onset of DM. He was started on IV levaquin. The redness continued to worsen. Podiatry consult was obtained. CT done showing swelling but no abscess. Flagyl was added to levaquin. Patient's redness and swelling worsened so family requested transfer to [facility] for further treatment. He was started on SSI to bring his b lood sugars down. Metformin was initially started but stopped due to contrast on CT. His A1C was elevated. Transferred in good condition. Hospital Course: Discharge Dx: L foot cellulitis. New onset DM. HTN. Disposition - [facility]
== END 2018-06-28 21:38 | disposition short-term general hospital (02) | DRG 603 ==
LOC: ED 18:36 → SOUTH 21:09
PROVIDERS: ADMIT Family Medicine; ATTEND Family Medicine
DX: L03.032 Cellulitis of left toe (principal); E11.65 Type 2 diabetes mellitus with hyperglycemia; I10 Essential (primary) hypertension
CPT/HCPCS: 36415; 73610; 73701; 80048; 80053; 81002; 82805; 83036; 85025; 87040; A9270; J1815; J1956; J3490; J7030; 99222; 99232; 99238; 99242; Q9967; S1016

== ENCOUNTER 2018-07-19 07:28 | Outpatient (CLI) | payer OTHER ==
[2018-07-19 08:22] LABS: eGFR (Non-African) 51
== END 2018-07-19 07:35 ==
LOC: LAB 07:28
PROVIDERS: ATTEND Internal Medicine
DX: L03.116 Cellulitis of left lower limb (principal); E66.01 Morbid (severe) obesity due to excess calories; Z68.42 Body mass index [BMI] 45.0-49.9, adult; G47.33 Obstructive sleep apnea (adult) (pediatric); Z99.89 Dependence on other enabling machines and devices; E11.8 Type 2 diabetes mellitus with unspecified complications; K21.9 Gastro-esophageal reflux disease without esophagitis; A41.9 Sepsis, unspecified organism
CPT/HCPCS: 36415; 80048

== ENCOUNTER 2018-10-12 09:00 | Outpatient (CLI) | payer OTHER | END 2018-10-12 09:02 | LOC: LAB 09:00 | PROVIDERS: ATTEND Family Medicine | DX: E11.9 Type 2 diabetes mellitus without complications (principal) | CPT/HCPCS: 36415; 83036 ==

== ENCOUNTER 2019-01-10 09:22 | Outpatient (CLI) | payer OTHER | END 2019-01-10 09:24 | LOC: LAB 09:22 | PROVIDERS: ATTEND Family Medicine | DX: E11.9 Type 2 diabetes mellitus without complications (principal) | CPT/HCPCS: 36415; 80061; 83036 ==